=== PATIENT | female | born 1980 | race Caucasian/White ===

== ENCOUNTER 2022-02-11 21:17 | Emergency (ER) | payer OTHER ==
[2022-02-11 23:34] LABS: HEMOGLOBIN 11.8 gm/dl (12.3-15.3); RED BLOOD COUNT 4.17 M/UL (4.00-5.10); WHITE BLOOD COUNT 8.5 K/UL (4.5-11.0)
[2022-02-11 23:56] LABS: BUN/CREATININE RATIO 27 (0-10)
[2022-02-12] MEDS ORDERED: IBUPROFEN600 MG PO (02:29)
== END 2022-02-12 02:47 | disposition home or self-care (01) ==
LOC: ER1 21:17
PROVIDERS: Emergency Medicine
DX: Z48.817 Encounter for surgical aftercare following surgery on the skin and subcutaneous tissue (principal)
CPT/HCPCS: 80053; 85025; 99283